=== PATIENT | female | born 1975 | race Two or more races ===

== ENCOUNTER 2025-04-06 10:56 | Emergency (ER) | payer BC ==
[~2025-04-06] VITALS: Ht 175.3 cm; Wt 88.5 kg
[2025-04-06] MEDS ORDERED: NORVASC5 MG PO (11:23)
[2025-04-06] MEDS ORDERED: ATORVASTATIN CA20 MG PO (11:23)
[2025-04-06] MEDS ORDERED: PROMETRIUM200 MG (11:23)
[2025-04-06] MEDS ORDERED: CLIMARA1 EAC2 (11:23)
[2025-04-06] MEDS ORDERED: SODIUM CHLORIDE 0.45 % 1,000 ML IV SCH (12:00)
[2025-04-06] MEDS ORDERED: FAMOTIDINE/PF 20 MG/2 ML VIAL ONE (12:10)
[2025-04-06] MEDS ORDERED: ONDANSETRON HCL 2 MG/ML VIAL ONE (12:10)
[2025-04-06] MEDS ORDERED: FAMOTIDINE/PF 20 MG/2 ML VIAL IV ONE (12:15)
[2025-04-06] MEDS ORDERED: ONDANSETRON HCL 2 MG/ML VIAL IV ONE (12:15)
[2025-04-06 13:05] LABS: BASO % 0.3 % (0.1-1.2); EOS # 0.05 (0.04-0.54); EOS % 0.4 % (0.7-7.0); LYMPH # 1.96 (1.18-3.74); LYMPH % 15.5 % (19.3-53.1); MEAN PLATELET VOLUME 9.80 fl (9.4-12.4); MONO # 0.66 (0.24-0.82); MONO % 5.2 % (4.7-12.5); NEUT # 9.88 (1.56-6.13); NEUT % 78.3 % (34.0-71.1); RED CELL DISTRIBUTION WIDTH 11.7 % (11.6-14.4)
[2025-04-06 13:49] LABS: ALT/SGPT 28.0 U/L (12-78); AST/SGOT 22.0 U/L (15-37); BILIRUBIN TOTAL 0.96 mg/dL (0.3-1.2); BILIRUBIN,CONJUGATED 0.21 mg/dL (0.0-0.2); BUN CREA RATIO 15.0 (7.0-25.0); CREATININE SERUM 0.8 mg/dL (0.55-1.02); GFR 76.88; GLUCOSE FASTING 102.0 mg/dL (65-100); OSMOLALITY SERUM 279.0 MOSM/KG (275-295); PHOSPHOKINASE CREATININE 146.0 U/L (26-192)
[2025-04-06 13:50] LABS: CKMB 4.1 NG/ML (0.5-3.6)
== END 2025-04-06 15:27 | disposition home or self-care (01) ==
LOC: ER 10:56
PROVIDERS: General Practice
DX: T67.01XA Heatstroke and sunstroke, initial encounter (principal); R07.89 Other chest pain; I10 Essential (primary) hypertension; R53.1 Weakness; R11.0 Nausea